=== PATIENT | male | born 1945 | race Caucasian/White ===

== ENCOUNTER → 2017-08-16 06:51 | Outpatient (CLI) | payer MEDICARE, SELFPAY ==
--- NOTE | 2017-08-16 16:17 | STRESSREP ---
Stress Test Report Pharmacologic myocardial perfusion stress test. 71-year-old man with a history of chest pain. Stress EKG: Resting EKG demonstrates normal sinus rhythm with a rate of 67 bpm right bundle branch block is noted. 0.4 mg of regadenoson was infused per usual protocol continuous EKG monitoring was performed. The maximum heart rate attained was 100 bpm which was 67% maximum predicted heart rate the maximum workload attained was 1 metabolic equivalent. At rest there were no ST or T-wave changes noted suggest abnormal flow reserve at peak infusion no ST or T-wave changes were noted suggest abnormal flow reserve resting blood pressure is 146 100 final blood pressure 150/98. Myocardial perfusion protocol. 14.0 mCi of technetium 99m sestamibi was injected at rest. 0.4 mg of regadenoson was infused per usual protocol. Peak infusion 44.6 mCi of technetium 99m sestamibi was injected stress images were obtained stress and rest images were reconstructed and compared in the short axis vertical long and horizontal long axis. Gated images were also obtained. Perfusion SPECT analysis: Review of the stress images demonstrate normal uptake of tracer noted in all areas of the myocardium. The resting images similarly demonstrate normal uptake of tracer noted in all areas of the myocardium. No areas of reversibility are noted suggest ischemia. No previous infarct is noted. Gated SPECT analysis: The gated ejection fraction is 69%. Conclusion: Normal pharmacologic myocardial perfusion stress test. Preserved ejection fraction.
== END ==
PROVIDERS: Family Provider Family Medicine; PCP Family Medicine; Visit Provider Family Medicine
DX: R06.02 Shortness of breath (principal)
CPT/HCPCS: 78452; 93017; A9500; A4216; J2785

== ENCOUNTER 2018-01-30 15:16 | Observation (INO) | payer MEDICARE, SELFPAY ==
[2018-01-30] VITALS (9 sets, daily range): BP systolic 114–182; BP diastolic 69–109; PULSE 65–87; RESP 14–18; TEMP 36.4–37.1; O2SAT 89–98; BMI 42.4
[2018-01-30 16:54] LABS: Absolute Lymphocyte Count 1.36 X10^3/ul (0.83-4.51); Absolute Neutrophil Count 6.9 X10^3/uL (2.0-7.7); Basophil# 0.03 X10^3/uL; Basophil% 0.3 % (0-1); Eosinophils% 4.3 % (0-5); Hematocrit 40.2 % (40-54); Hemoglobin 12.7 g/dl (13.0-16.5); Lymphocyte # 1.36 X10^3/ul (4.0); Lymphocyte % 14.5 % (19-41); Mean Corp Hgb Conc 31.6 g/gl (32-36); Mean Corpuscular Hgb 30.4 pg (27.0-32.0); Mean Corpuscular Volume 96.2 fL (80-94); Mean Platelet Vol. 9.7 fl (6.2-12.0); Monocyte# 0.62 X10^3/uL; Monocyte% 6.6 % (0-10); Neutrophil # 6.94 X10^3/uL (2.7-7.7); Platelet Count 238 K/mm3 (150-450); RBC Distribution Width CV 13.9 % (11.6-14.6); RBC Distribution Width SD 49.3 fl (35.1-43.9); Red Blood Count 4.18 M/mm3 (4.6-6.2); White Blood Count 9.4 K/mm3 (4.4-11.0)
[2018-01-30 17:05] LABS: Anion Gap 9 (5-15); BUN 14 mg/dL (7-18); BUN/Creat Ratio 13.5 RATIO (10-20); Calcium,Total 8.4 mg/dL (8.5-10.1); Chloride 106 mmol/L (98-107); Creatinine, Serum 1.04 mg/dL (0.70-1.30); EST Glomerular Filtration Rate 75 mL/min (>60); Est Glom Filt Rate - Afr Amer 90 mL/min (>60); Estimated Creatinine Clearance 60.03 ml/min; Glucose 108 mg/dL (74-106); Potassium 4.2 mmol/L (3.5-5.1); Sodium Level 144 mmol/L (136-145)
[2018-01-30 17:07] LABS: POSITIVE COUNT NO; POSITIVE DIFFERENTIAL NO; POSITIVE MORPHOLOGY NO
--- NOTE | 2018-01-30 17:11 | CT_ITS ---
STUDY: CT ABDOMEN AND PELVIS WITHOUT CONTRAST REASON FOR EXAM: Male, 72 years old. Urinary retention, dizziness. Difficulty voiding. RADIATION DOSAGE (If Supplied By Facility): CTDIvol = ( 24.10 ) mGy, DLP = ( 1324.53 ) mGycm TECHNIQUE: Transaxial images were obtained from the dome of the diaphragm to the symphysis pubis without oral contrast, and without intravenous contrast. Sagittal and coronal images were reconstructed. Individualized dose optimization techniques were used for this CT. COMPARISON: None. FINDINGS: There is a 6 x 2 mm nodular density associated with the minor fissure. The visualized portions of the heart are within normal limits. Normal liver. Multiple small dependent gallstones are seen. No evidence of extrahepatic battery duct dilation. Normal spleen. Normal pancreas. Normal bilateral adrenal glands. There is mild bilateral hydronephrosis. Ureters are normal in course and caliber. No renal or ureteral stones are seen. There is no bowel obstruction or inflammatory change. Diverticulosis is noted, with no evidence of acute diverticulitis. The aorta is normal in caliber with mild atherosclerotic calcification. Infrarenal IVC filter is present. Normal urinary bladder. Normal abdominal wall. Mild degenerative spine changes are present. CT/Abdomen/Pelvis without Cont IMPRESSION: 1. Mild bilateral hydronephrosis. No evidence of obstructing mass or stone. 2. Cholelithiasis. No evidence of acute cholecystitis. 3. Nodular density in the right lung, likely fibrotic. Electronically Signed: Janny Hand MD at 18:12 EDT Tel , Service support ,
--- NOTE | 2018-01-30 17:46 | US_ITS ---
STUDY: VENOUS DOPPLER ULTRASOUND - LEFT LOWER EXTREMITY REASON FOR EXAM: Male, 72 years old. Left leg swelling. TECHNIQUE: Ultrasound evaluation of the deep vein system to include sutherland-scale imaging and compression was performed. Sutherland-scale imaging and Doppler sonographic evaluation, including duplex spectral analysis and qualitative color flow sonography, was performed. COMPARISON: None. FINDINGS: Common Femoral Vein: Normal compression, spontaneity and augmentation. Normal color Doppler. Femoral Proximal: Normal compression. Femoral Middle: Normal compression, spontaneity and augmentation. Normal color Doppler. Femoral Distal: Normal compression. Popliteal Vein: Normal compression, spontaneity and augmentation. Normal color Doppler. Visualized scans are patent. US/Venous Duplex Imag/Limited/Uni IMPRESSION: Normal venous Doppler ultrasound of the left lower extremity. Electronically Signed: Janny Hand MD at 19:08 EDT Tel , Service support ,
[2018-01-30] MEDS: Morphine 4 MG/ML Syringe IV ×3 (17:52→19:56)
[2018-01-30] MEDS: Ondansetron 4 MG/2 ML Vial IV ×2 (17:52→19:56)
--- NOTE | 2018-01-30 19:53 | CT_ITS ---
STUDY: CT ABDOMEN AND PELVIS WITHOUT CONTRAST REASON FOR EXAM: Male, 72 years old. Suprapubic catheter placement. Urinary retention. RADIATION DOSAGE (If Supplied By Facility): CTDIvol = ( 23.23 ) mGy, DLP = ( 1398.87 ) mGycm TECHNIQUE: Transaxial images were obtained from the dome of the diaphragm to the symphysis pubis without oral contrast, and without intravenous contrast. Sagittal and coronal images were reconstructed. Individualized dose optimization techniques were used for this CT. COMPARISON: None. FINDINGS: There is mild bibasilar atelectasis. The visualized portions of the heart are within normal limits. The liver, spleen, pancreas, and adrenal glands are unremarkable. Small dependent stones are seen in the bladder. The aorta is normal in caliber. Infrarenal IVC filter is noted. The kidneys are unremarkable. No renal stones or obstructive uropathy. The bladder has been decompressed compared to the prior study. There is moderate fluid surrounding the bladder, new compared to the prior study, consistent with catheter placement and urine leakage. There is mild free fluid about the liver, new compared to the prior study. There are several foci of extraluminal gas, new compared to the prior study, consistent with recent procedure. There is no organized collection. There is no bowel obstruction or inflammatory change. Mild inguinal adenopathy is noted. Normal abdominal wall. Degenerative changes of the spine and hips are noted. CT/Abdomen/Pelvis without Cont IMPRESSION: 1. Status post bladder decompression with moderate free fluid about the bladder, consistent with urine leak during or status post procedure. 2. Trace free air consistent with recent procedure. 3. Cholelithiasis. Electronically Signed: Janny Hand MD at 20:44 EDT Tel , Service support ,
--- NOTE | 2018-01-30 20:34 | ED.VISSUMM ---
- ER Visit Summary Date of Service: 01/30/18 Chief Complaint: Urinary retention History of Present Illness: The patient is a [address] King. He reports that he had right rotator cuff repair [address] Diaz in [facility]. States that since that time feels like he is dribbling and trickling urine. He does not feel he is emptying his bladder. Reports that he feels lightheaded. He has not passed out. He also complains of left leg swelling over the past 3 days. He denies any chest pain or shortness of breath. Physical Examination: Vitals: Stable. Afebrile. General: Well-nourished and well-developed. Head: Normocephalic atraumatic. Neck: Supple, no lymphadenopathy. No JVD. Nontender. Cardiovascular: Regular rate and rhythm. No murmurs. Respiratory: No respiratory distress. Clear to auscultation bilaterally. Abdominal: Soft, mild suprapubic tenderness with a distended bladder, nondistended, normal bowel sounds. No guarding, rebound, or peritoneal signs. : Penis is recessed back into his suprapubic tissue. Back: Nontender. Extremities: Right shoulder is in a sling. 2+ edema left lower extremity. Skin: Normal color, no rash. Neurologic: Alert and oriented ?3. Cranial nerves II through XII are intact. Normal strength and sensation. Psych: Normal affect. Test Results: CT flank shows mild bilateral hydronephrosis. Left lower extreme a Doppler shows no DVT. CBC is more for hemoglobin 12.7, 7 neutrophils 74, lymphocytes 15. Chem-7 is more for glucose 108 and calcium of 8.4. Emergency Department Course and Treatment: Patient had a bladder scan here that only showed 200 cc of urine. I do not feel that this is accurate. He has CT flank that does show a distended bladder. He was discussed with Dr. Barron who has seen him in the emergency department and is taking him to the operating room at this time. She did attempt to place a Ochoa catheter and suprapubic catheter in the emergency department without success. Treatment Plan: Patient will be admitted to Dr. Barron for further evaluation and treatment. Disposition: Admitted in stable condition. Impression: 1. Urinary retention. 2. 3 days status post right rotator cuff repair. This note was generated with Dragon dictation software. It may contain incorrect words, spelling, and punctuation that were not noted in review of the chart prior to signing ED Disposition - Plan for ED Patient: Chief Complaint: Complaint Referrals: Sundeep King MD [Primary Care Provider] -
[2018-01-30] MEDS: Lidocaine Jelly 2% 20 ML Syringe (URO-JET) 20 APPLIC TOPICAL (21:14)
--- NOTE | 2018-01-30 21:44 | ED.RN ---
Addendum entered by Sheldon Johnson 01/30/18 22:09: PT DURING THE PROCEDURE IS COMPLAINING OF INTOLERABLE PAIN IN HIS ABDOMEN, DR AGUILAR GAVE VERBAL ORDERS FOR MORPHINE AND ZOFRAN. PT WAS MEDICATED FOR PAIN, PT'S HEART RATE THEN BEGAN TO GO DOWN INTO THE 30'S, DR AGUILAR WAS MADE AWARE AND CALLED FOR ATROPINE TO BE BEDSIDE. ATROPINE WAS OPENED BUT PT'S HEART RATE RETURNED INTO THE MID 50'S. THE SUPRAPUBIC WAS UNSUCCESSFUL AND WAS DECIDED TO TAKE PT DOWN TO SURGERY. Original Note: Addendum entered by Sheldon Johnson 01/30/18 22:09: Original Note: DR BOSS WAS IN THE ED TO ATTEMPT SUPRAPUBIC CATHETER. DR BOSS ATTEMPTED SEVERAL TIMES WITH SUPRAPUBIC KIT AND WAS NOT SUCCESSFULLY ABLE TO HAVE SUSPECTED AMOUNT OF URINE DRAIN FROM THE CATHETER. DR BOSS THEN REQUESTED THE BLADDER IRRIGATION KIT, WHICH WAS PROVIDED, SHE ATTEMPTED TO IRRIGATE WITH APPROX 30ML OF STERILE NORMAL SALINE. A SMALL AMOUNT OF BLOOD TINGED CLEAR LIQUID DRAINED FROM THE BLADDER. SHE NEXT REQUESTED DR AGUILAR AND THE ULTRASOUND MACHINE ALONG WITH A SPINAL NEEDLE TO ATTEMPT TO ASPIRATE THE BLADDER. SUPPLIES AND DR AGUILAR WERE BROUGHT BACK TO THE PATIENT ROOM. DR BOSS AND DR AGUILAR WERE NOT ABLE TO DETERMINE WHETHER OR NOT THE CATHETER WAS IN THE BLADDER. DR BOSS ATTEMPTED SEVERAL TIME TO ASPIRATE THE BLADDER WAS GETTING SOME FLUID RETURN WITH THE SPINAL NEEDLE AND THEN ATTEMPTED TO REINSERT THE SUPRAPUBIC AGAIN. ONLY A SMALL AMOUNT OF FLUID DRAINED.
[2018-01-30] MEDS: Bacitracin 500 UNITS/GM PACKET (22:15)
--- NOTE | 2018-01-30 22:30 | PCM.IMDPSTOP ---
Immediate Post-Op Note Date of Procedure: 01/30/18 Primary Surgeon/Physician: Nicole Barron MD air chief marshal: Nicole Barron Pre-Operative Diagnosis: urinary retention, urethral stricture. Post-Operative Diagnosis: same Surgery/Procedure Performed:: urethral dilation, terrell catheter insertion, difficult Description of Surgical Findings:: Penis located in scrotal folds due to reconstruction. slit made in scrotal fold, meatus identified and urethra dilated with sounds to 18 Fr. 16 Fr terrell passed without difficulty. 250cc clear yellow urine drained. Estimated Blood Loss: 5cc Specimen's removed: none Type of Anesthesia:: MAC - and 1% lidocaine local - Admit VTE Documentation VTE Present on Admission: Yes VTE Mechan Device Prophylaxis: SCD's VTE Pharm Prophylaxis ordered?: Yes
--- NOTE | 2018-01-30 22:34 | OP.PN_ITS ---
Immediate Post-Op Note Date of Procedure: 01/30/18 Primary Surgeon/Physician: Nicole Barron MD pediatric clinical dietician: Nicole Barron Pre-Operative Diagnosis: urinary retention, urethral stricture. Post-Operative Diagnosis: same Surgery/Procedure Performed:: urethral dilation, terrell catheter insertion, difficult Description of Surgical Findings:: Penis located in scrotal folds due to reconstruction. slit made in scrotal fold , meatus identified and urethra dilated with sounds to 18 Fr. 16 Fr terrell passed without difficulty. 250cc clear yellow urine drained. Estimated Blood Loss: 5cc Specimen's removed: none Type of Anesthesia:: MAC - and 1% lidocaine local - Admit VTE Documentation VTE Present on Admission: Yes VTE Mechan Device Prophylaxis: SCD's VTE Pharm Prophylaxis ordered?: Yes
[2018-01-30] MEDS: Dextrose 5%-Lactated Ringers 1,000 ML 100 ML IV (22:35)
--- NOTE | 2018-01-30 22:51 | OP.PCM_ITS ---
Problem List (1) Urinary retention Status: Acute (2) Urethral stricture Status: Acute Report of Operation Date of Procedure: 01/30/18 Pre-Operative Diagnosis: urinary retention, urethral stricture. Post-Operative Diagnosis: same Surgery/Procedure Performed:: urethral dilation, terrell catheter insertion, difficult Description of Surgical Findings:: Penis located in scrotal folds due to reconstruction. slit made in scrotal fold , meatus identified and urethra dilated with sounds to 18 Fr. 16 Fr terrell passed without difficulty. 250cc clear yellow urine drained. application technical designer: Nicole Barron Type of Anesthesia:: MAC - and 1% lidocaine local Special Medications: ancef, lidocaine local Specimen's removed: none Estimated Blood Loss (mL): 5cc Description of Procedure: The patient is a 72-year-old male who has a history of bariatric procedure followed by significant weight loss. This weight loss yielded a crane ectomy. 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 Over the course of 3 years he has been scarring down the scrotal reconstructive surgery and has now been just dripping urine. Of note, he did not follow up appropriately following his reconstructive procedure. He wears depends at home and does not void normally. He reports that he stands up and pushes on his abdomen in order to get the urine to come out. He denies hematuria. He had a rotator cuff procedure 3 days ago and has had increased difficulty in voiding since that time. Due to inability to urinate and continuous urinary incontinence, he presented to the emergency room today. An attempt was made in the emergency room to place a Terrell catheter this was unsuccessful. The patient had an second area in the scrotum that was leaking urine which was cephalad to the area of the scrotal reconstruction. At this time he continued to leak urine and a CT scan was obtained. The CT scan revealed a large distended urinary bladder without hydronephrosis. An attempt was then made at bedside suprapubic tube insertion. Approximately 200 cc of urine was obtained. The drainage then stopped abruptly. The decision was made to take the patient back for rescanning of his abdomen. This scan showed the Terrell catheter to be in an anterior position to a significantly decreased distended urinary bladder. The bladder was surrounded with fluid, likely to be urine and blood. At this time the risks and alternatives were discussed with the patient and I called his on the phone. We decided to take the patient back to surgery for insertion of a urethral Terrell catheter. The patient was taken to the operating room and placed on the operating room table. Anesthesia monitored the head neck area IV access and vital signs throughout the case. Once anesthesia was a probably administered the patient was prepped and draped in usual sterile fashion. At first inspection was made on the area thought to be the urethral scar after reconstruction. This area was inspected and felt to be more likely a fistulous leaking area. Attention was then turned down towards the area of the scrotum where there were multiple folds of skin that were abnormal in shape. Upon further inspection, an area of hair was growing into an area determined to be the opening most likely for the penis. This area was dilated first with an 8 Australian sound, followed by a 10 Australian and so forth until it was dilated enough to see the tip of the glans. Once it was determined where the area of the scrotal skin was not the penis, this area was slipped for further evaluation first with hemostatic control using hemostats followed by cutting the tissue with metastases. This was done dorsally. At this time the urethral meatus was visualized and the area was recleansed with Betadine. The meatus was dilated starting with the [address] way up to an 18 Australian. This passed easily into the bladder and a 16 Australian Terrell catheter was placed using a catheter guide into the urinary bladder and the bladder was drained. 250 cc of clear yellow urine was obtained. The balloon was inflated with 10 cc. 2 interrupted sutures were placed in the area in question for a fistula and a wick was left in the middle. 2 mattress sutures were placed in the area of the suprapubic tube insertion site. Bacitracin was applied to the skin at the penile reconstructive site that was opened. Sterile gauze was placed both over the wick as well as the penis. At this time the patient was awakened and taken to the recovery room in good condition. There were no complications during this procedure. - Complications none - Admit VTE Documentation VTE Present on Admission: Yes VTE Mechan Device Prophylaxis: SCD's VTE Pharm Prophylaxis ordered?: Yes
--- NOTE | 2018-01-30 22:52 | PCM.OPRPT ---
Problem List (1) Urinary retention Status: Acute (2) Urethral stricture Status: Acute Report of Operation Date of Procedure: 01/30/18 Pre-Operative Diagnosis: urinary retention, urethral stricture. Post-Operative Diagnosis: same Surgery/Procedure Performed:: suprapubic tube insertion at bedside. Description of Surgical Findings:: After a failed attempt at placement of urethral Ochoa catheter the decision was made to insert a suprapubic tube at bedside. Risks were discussed with the patient including successful placement, bleeding, infection and injury. He agreed to proceed. vendor management specialist: Nicole Barron Type of Anesthesia:: Local Specimen's removed: none Estimated Blood Loss (mL): 5cc Description of Procedure: The patient's abdomen was palpated and the distended bladder was palpable. Approximately 2 fingerbreadths above the pubic bone a wheal of local lidocaine was injected. At this time a 11 blade knife was used to make a stab incision in vertical fashion at the area of the suprapubic tube insertion. Using a spinal needle urine was obtained. The suprapubic tube kit trocar with the Ochoa catheter and cath guide inside was then inserted through the incision into the abdomen and approximately 100 cc of pink urine drained from the Ochoa. The balloon was then inflated with 10 cc in the trocar and spinal needle were removed. At this time the Ochoa began to slough lowly drip urine at which point a steady stream was expected. Patient continued to complain of pain in the abdomen specifically at the site of the suprapubic catheter. At this time it was noticed that the patient had voided a significant amount of urine into the checks and bedding. The decision was made to take the patient back to CAT scan for re-imaging. Upon reimaging it was determined that the Ochoa balloon was in an anterior position to the urinary bladder. The suprapubic tube was removed. - Complications placement of suprapubic catheter anterior to the bladder. - Admit VTE Documentation VTE Present on Admission: No
[2018-01-31 00:13] VITALS: BMI 42.4
[2018-01-31 00:17] VITALS: BP 143/92; PULSE 76; RESP 16; TEMP 37.2; O2SAT 96
[2018-01-31] MEDS: HYDROcodone Bitartrate/Apap 5/325 Tablet PO ×2 (01:15→14:19)
[2018-01-31] MEDS: Cephalexin 500 MG Capsule PO ×3 (01:15→11:49)
[2018-01-31] MEDS: Enoxaparin 40 MG/0.4 ML Syringe SC ×2 (01:15→06:46)
[2018-01-31] MEDS: Dextrose 5%-Lactated Ringers 1,000 ML 100 ML IV (01:43)
[2018-01-31 01:58] LABS: Bacteria 0 SEEN /hpf (None Seen); Mucous, Urine 0 SEEN /hpf (<or=2+); Squamous Epithelial Cells - UA 0 SEEN /hpf (0-5); White Blood Cells 0 SEEN /hpf (0-5)
[2018-01-31 02:03] LABS: Color, Urine Yellow (Yellow); Glucose, Dipstick Normal (Normal); Ketone-Dipstick Negative (Negative); Leukocyte Esterase-Dipstick Negative /ul (Negative); Nitrite-Dipstick Negative (Negative); Occult Blood-Urine 10 /ul (Negative); Protein-Dipstick Negative (Negative); Specific Gravity, Urine 1.015 (1.002-1.030); Urine Bilirubin Dipstick Negative (Negative); Urine Clarity Clear (Clear); Urine Urobilinogen Normal (Normal); Urine pH 6.5 (5.0 - 8.0)
[2018-01-31 02:05] VITALS: BP 142/79; PULSE 76; RESP 16; TEMP 36.1; O2SAT 97; BMI 42.4
[2018-01-31 02:09] LABS: Red Blood Cells-Urine 0-5 SEEN /hpf (0-5)
[2018-01-31 05:15] VITALS: BP 132/68; PULSE 81; RESP 16; TEMP 36.9; O2SAT 97
[2018-01-31] MEDS: Lisinopril 40 MG Tablet PO (08:49)
[2018-01-31 08:50] VITALS: BP 138/83; PULSE 76; RESP 18; TEMP 37; O2SAT 93
[2018-01-31] MEDS: Etodolac 200 MG Capsule 400 MG PO (08:50)
[2018-01-31] MEDS: Aspirin 81 MG TAB.CHEW PO (08:50)
[2018-01-31] MEDS: Nystatin Ointment 1 APPLIC TOPICAL (08:51)
--- NOTE | 2018-01-31 09:14 | PN_ITS ---
Physical Exam Subjective: Feeling much better this morning. Sitting up in bed, eating breakfast. Some penile pain, but no abdominal pain or distention. Ready to go home. Objective: Terrell catheter draining clear yellow urine. Abdominal SPT site closed, not draining. Wick in the SP area removed. Will continue to change dressing as needed. penile area edematous, but no drainage or bleeding. nystatin cream being applied BID to inguinal areas. - Physical Exam Vital Signs Temp 98.5 F 01/31/18 05:15 Pulse 81 01/31/18 05:15 Resp 16 01/31/18 05:15 BP 132/68 H 01/31/18 05:15 Pulse Ox 97 01/31/18 05:15 Intake & Output 01/29/18 01/30/18 01/31/18 23:59 23:59 23:59 Intake Total 1000 / 1000 1177 / 1177 Output Total 150 / 150 709 / 709 Balance 850 / 850 468 / 468 Weight: 122.92 kg Intake: Oral 500 / 500 IV fluid/meds 1000 / 1000 677 / 677 IV #2 1000 / 1000 Output: Urine 150 / 150 709 / 709 General: Alert, Oriented x3, Cooperative, No apparent distress HEENT: Atraumatic, Normocephalic Oral: Moist Mucosa Neck: Trachea Midline Lungs: Normal air movement Abdomen: Soft, Non Tender, Non-Distended Rectal: Exam deferred Skin: Rash Present - inguinal consistent with yeast. Neurological: Cranial nerves II-XII grossly intact, Neuro grossly intact Psych/Mental Status: Normal Affect Laboratory Tests Past 24 Hrs 01/31/18 01:20 Urine Color Yellow Urine Clarity Clear Urine pH 6.5 Ur Specific [place] 1.015 Urine Protein Negative Urine Glucose (UA) Normal Urine Ketones Negative Urine Occult Blood 10 H Urine Nitrite Negative Urine Bilirubin Negative Urine Urobilinogen Normal Ur Leukocyte Esterase Negative Urine RBC 0-5 SEEN Urine WBC 0 SEEN Ur Squamous Epith Cells 0 SEEN Urine Bacteria 0 SEEN Urine Mucus 0 SEEN Medical Necessity - Tobacco Use Smoking Status: Former smoker Assessment/Plan All Active Problems Urinary retention (Acute) Urethral stricture (Acute) Cellulitis of buttock, left (Acute) Cellulitis of elbow (Resolved) Home today on keflex, nystatin with terrell catheter to straight drain. Will continue dry dressings as needed. Will follow up with in the office in 1 week.
--- NOTE | 2018-01-31 09:17 | PCM.DC.URO ---
Discharge Diet: No Restrictions, - - as appropriate s/p bariatric procedure. Discharge Activity: Return to Normal Activity - as instructed per orthopedics regarding rotator cuff, May Shower, - - no tub bathing Call your doctor if your incision/area has: Continuous Slow Oozing, Sudden Increased Bleeding, Increased Pain/ Swelling, Increased Redness, Foul Smelling Discharge, Swelling at the incision site Call your doctor if you observe: Fever of 101 or Higher, Inability to urinate, Inability to have a bowel movement, Chest pain, Calf discomfort, Uncontrolled pain Cleanse incision/area with: Keep Dressing Clean & Dry Catheter: Ochoa to leg bag, - - ok to use large bag at night Allergies/Adverse Reactions: Allergies oxycodone Adverse Reaction (Verified 01/30/18 16:28) Nausea Medications to take at Discharge Lisinopril [Zestril] 40 mg PO DAILY 01/08/15 Aspirin [Aspirin, Baby] 81 mg PO DAILY@0800 04/24/15 Oxycodone HCl/Acetaminophen [Percocet 5-325] 1 - 2 tablet PO Q4H PRN PRN #20 tablet 05/18/16 Etodolac 400 mg PO BID 01/30/18 Multivitamin [Multiple Vitamins] 1 each PO DAILY 01/30/18 Aspirin [Aspirin, Baby] 81 mg PO DAILY@0800 tab.chew 01/31/18 Cephalexin [Keflex] 500 mg PO Q6 capsule 01/31/18 Cephalexin [Keflex] 500 mg PO Q6 #40 cap 01/31/18 Enoxaparin [Lovenox] 40 mg SC DAILY@0600 syringe 01/31/18 Ensure Enlive 120 ml PO 4X/DAY liquid 01/31/18 Etodolac [Lodine] 400 mg PO BIDCM capsule 01/31/18 Hydrocodone Bitart/Apap 5-325 [[place] 5/325] 2 tab PO Q6H PRN PRN 7 Days #30 tab 01/31/18 The following prescriptions were given: Hydrocodone Bitart/Apap 5-325 [[place] 5/325] 2 tab PO Q6H PRN PRN 7 Days #30 tab PRN Reason: Severe Pain (-03/01) Cephalexin [Keflex] 500 mg PO Q6 #40 cap Primary Care Physician: Sundeep King MD [Primary Care Provider] - Test Results: Test results from this visit will be discussed in further detail at your follow-up appointment, if applicable. Please Follow Up With: When: in 1 week
--- NOTE | 2018-01-31 09:20 | DCINST_ITS ---
Discharge Diet: No Restrictions, - - as appropriate s/p bariatric procedure. Discharge Activity: Return to Normal Activity - as instructed per orthopedics regarding rotator cuff, May Shower, - - no tub bathing Call your doctor if your incision/area has: Continuous Slow Oozing, Sudden Increased Bleeding, Increased Pain/ Swelling, Increased Redness, Foul Smelling Discharge, Swelling at the incision site Call your doctor if you observe: Fever of 101 or Higher, Inability to urinate, Inability to have a bowel movement, Chest pain, Calf discomfort, Uncontrolled pain Cleanse incision/area with: Keep Dressing Clean & Dry Catheter: Ochoa to leg bag, - - ok to use large bag at night Allergies/Adverse Reactions: Allergies oxycodone Adverse Reaction (Verified 01/30/18 16:28) Nausea Medications to take at Discharge Lisinopril [Zestril] 40 mg PO DAILY 01/08/15 Aspirin [Aspirin, Baby] 81 mg PO DAILY@0800 04/24/15 Oxycodone HCl/Acetaminophen [Percocet 5-325] 1 - 2 tablet PO Q4H PRN PRN #20 tablet 05/18/16 Etodolac 400 mg PO BID 01/30/18 Multivitamin [Multiple Vitamins] 1 each PO DAILY 01/30/18 Aspirin [Aspirin, Baby] 81 mg PO DAILY@0800 tab.chew 01/31/18 Cephalexin [Keflex] 500 mg PO Q6 capsule 01/31/18 Cephalexin [Keflex] 500 mg PO Q6 #40 cap 01/31/18 Enoxaparin [Lovenox] 40 mg SC DAILY@0600 syringe 01/31/18 Ensure Enlive 120 ml PO 4X/DAY liquid 01/31/18 Etodolac [Lodine] 400 mg PO BIDCM capsule 01/31/18 Hydrocodone Bitart/Apap 5-325 [Strand[place] 5/325] 2 tab PO Q6H PRN PRN 7 Days #30 tab 01/31/18 The following prescriptions were given: Hydrocodone Bitart/Apap 5-325 [Strandquist 5/325] 2 tab PO Q6H PRN PRN 7 Days #30 tab PRN Reason: Severe Pain (-03/01) Cephalexin [Keflex] 500 mg PO Q6 #40 cap Primary Care Physician: Sundeep King MD [Primary Care Provider] - Test Results: Test results from this visit will be discussed in further detail at your follow- up appointment, if applicable. Please Follow Up With: When: in 1 week
[2018-01-31 12:05] VITALS: O2SAT 97
--- NOTE | 2018-01-31 13:07 | NURSING ---
1230-patient resting at side of bed after being up to restroom with assist x1; pt had been instructed to pull cord by toilet to get assistance back to bed. pt now found at side of bed stating he almost fell in restroom and then stating he fell to his knees, but was able to get back up. when asked why he didn't wait for assistance, pt states he didn't think anyone was coming. MD notified. pt denies pain needs. denies hitting head.
--- NOTE | 2018-01-31 13:54 | NURSING ---
called in for update on patient. reviewed discharge instructions with over phone. denies questions.
[2018-01-31 14:22] VITALS: BP 134/81; PULSE 76; RESP 18; TEMP 37.1; O2SAT 96
== END 2018-01-31 15:30 | disposition home or self-care (01) ==
LOC: ED 16:52 → SDC 20:38 → AC 20:43 → SDC 21:11 → MS2 21:34
PROVIDERS: Admitting Provider Urology; Emergency Provider Emergency Medicine; Family Provider Family Medicine; PCP Family Medicine; Visit Provider Urology
PROC: 0TJB8ZZ Inspection of Bladder, Via Natural or Artificial Opening Endoscopic (ICD-10-PCS; CPT 52000; principal; 2018-01-30 21:30)
DX: R33.9 Retention of urine, unspecified (principal); N35.9 Urethral stricture, unspecified; R32 Unspecified urinary incontinence; N48.83 Acquired buried penis; Z86.711 Personal history of pulmonary embolism; Z98.84 Bariatric surgery status; Z79.899 Other long term (current) drug therapy; Z79.82 Long term (current) use of aspirin; R42 Dizziness and giddiness; M79.89 Other specified soft tissue disorders
CPT/HCPCS: 00910; 51040; 53600; 74176; 80048; 81001; 85025; 87086; 93971; 96361; 96372; 96374; 96375; 96376; 99218; 99283; J7030; A4216; G0378; J2405

== ENCOUNTER 2018-02-15 17:31 | Emergency (ER) | payer MEDICARE, SELFPAY ==
[2018-02-15 17:31] VITALS: BP 164/92; PULSE 80; RESP 18; TEMP 36.6; O2SAT 97; BMI 42.0
--- NOTE | 2018-02-15 18:01 | CT_ITS ---
STUDY: CT ABDOMEN AND PELVIS WITH CONTRAST REASON FOR EXAM: Male, 72 years old. Blood and fully catheter today RADIATION DOSAGE (If Supplied By Facility): CTDIvol = ( 22.45 ) mGy, DLP = ( 2693.74 ) mGycm TECHNIQUE: Transaxial images were obtained from the dome of the diaphragm to the symphysis pubis without oral contrast. 100ML ml of Isovue 300 contrast was administered. Sagittal and coronal images were reconstructed. Individualized dose optimization techniques were used for this CT. COMPARISON: Previous study of 01/30/2018 FINDINGS: The visualized lung bases are unremarkable. The visualized portions of the heart are within normal limits. Normal liver. Several tiny calcified gallstones are seen in the gallbladder. Normal spleen. Normal pancreas. Normal bilateral adrenal glands. There is a 1.1 cm low-attenuation focus of the right kidney indeterminate for solid versus cystic structure. Normal left kidney. Status post gastric surgical changes are noted. Normal small intestine. There is colonic diverticulosis with no evidence of associated diverticulitis. The appendix is visualized and appears normal. There are calcified plaques of the abdominal aorta and common iliac arteries. An IVC filter is seen at the L2-3 level. Normal retroperitoneum. A Ochoa catheter is present within a decompressed urinary bladder. The prostate, subtle vesicles, and seminal vesicle angles appear within normal limits. There are bilateral fat-containing inguinal hernias. Normal abdominal wall. There are diffuse degenerative changes of the visualized thoracolumbar spine and SI joints. CT/Abdomen/Pelvis W IV Cont ONLY IMPRESSION: 1. Cholelithiasis. 2. 1.1 cm low-attenuation focus of the right kidney indeterminate for solid versus cystic structure. Ultrasound correlation is recommended. 3. Status post gastric surgical changes. 4. Colonic diverticulosis with no evidence of associated diverticulitis. 5. There is an IVC filter at the L2-3 level. 6. A Ochoa catheter is present within a decompressed urinary bladder. There is no evidence of perivesicular fluid. 7. Bilateral fat-containing inguinal hernias. 8. There is no evidence of free intra-abdominal or intrapelvic air, fluid, or inflammatory process. Electronically Signed: Florentino Sanchez MD at 20:12 EDT , Service support ,
--- NOTE | 2018-02-15 18:06 | ED.DCSUM_ITS ---
- ER Visit Summary Date of Service: 02/15/18 Chief Complaint: Hematuria in Ochoa catheter History of Present Illness: The patient is a 72 M who presents for 1 week of hematuria. Patient has a Ochoa catheter in place and noted 1 week ago that his urine began running red. It is been intermittent, but he has had continued hematuria for the last few days. He is also noted black flecks in it. Patient had complications from right shoulder surgery earlier in the month, resulting in urinary retention. Because of obesity, they attempted to place a suprapubic catheter unsuccessfully, and then he required surgical insertion of a Ochoa catheter into his penis. He is supposed to have it taken out on February 21. Patient is also complaining of associated pain and swelling at the site of the suprapubic catheter insertion. He denies fever, nausea or vomiting, or back pain. He has history of gastric bypass. Dr. Linton is his urologist. Physical Examination: Vital signs: afebrile, hemodynamically stable, no hypoxia on room air General: well nourished, well developed, BMI of 42, in no distress Skin: warm, dry, no rash, no pallor HEENT: normocephalic and atraumatic; PERRL, EOMI, moist mucous membranes Cardiovascular: regular rate and rhythm without murmurs, no peripheral edema, 2+ pulses all distal extremities Respiratory: No increased work of breathing, lungs are clear to auscultation bilaterally, no rales, rhonchi or wheezing Abdominal: Abdomen is soft, obese, tenderness in the lower abdomen and along the midline surgical site from the suprapubic catheter placement, absorbable sutures are still in place, 5 cm area of induration and tenderness, no exudate or fluctuance noted. No suprapubic tenderness or fullness, normoactive bowel sounds, no guarding or rebound, no masses : Fully catheter in place with no leakage or bleeding around the insertion site, penis is not visualized, scrotum appears normal. No swelling or erythema. Ochoa catheter bag is full of rhoda hematuria with small clots. MSK: Moves all extremities, no deformities, normal strength Neuro: Awake and alert, oriented ?4. No facial droop, sensation and motor function intact and symmetric Test Results: Abnormal Lab Results 02/15/18 02/15/18 02/15/18 17:52 18:40 18:40 WBC 8.2 RBC 4.08 L Hgb 12.7 L Hct 39.3 L MCV 96.3 H MCH 31.1 MCHC 32.3 RDW 13.1 RDW Differential 45.0 H Plt Count 255 MPV 10.3 Immature Gran % (Auto) 0.200 Neut % (Auto) 64.9 Lymph % (Auto) 20.2 [place] % (Auto) 6.5 Eos % (Auto) 7.7 H Baso % (Auto) 0.5 Absolute Neuts (auto) 5.3 Absolute Lymphs (auto) 1.66 Total Counted Not Reportable Sodium 141 Potassium 4.7 Chloride 108 H Carbon Dioxide 27.0 Anion Gap 6 BUN 15 Creatinine 1.06 Estim Creat Clear Calc 58.89 Est GFR (MDRD) Af Amer 88 Est GFR (MDRD) Non-Af 73 BUN/Creatinine Ratio 14.2 Glucose 104 Lactic Acid Calcium 8.5 Total Bilirubin 0.50 AST 23 ALT 28 Alkaline Phosphatase 118 H Total Protein 6.9 Albumin 3.2 Globulin 3.7 Albumin/Globulin Ratio 0.9 Urine Color Courtney Urine Clarity Cloudy Urine pH 7.0 Ur Specific [place] 1.010 Urine Protein 100 H Urine Glucose (UA) Normal Urine Ketones Negative Urine Occult Blood 250 H Urine Nitrite Positive H Urine Bilirubin 1 H Urine Urobilinogen 1 H Ur Leukocyte Esterase 500 H Urine RBC > 100 SEEN Urine WBC 10-25 SEEN Ur Squamous Epith Cells 0 SEEN Urine Bacteria 0 SEEN Urine Mucus 0 SEEN 02/15/18 18:40 WBC RBC Hgb Hct MCV MCH MCHC RDW RDW Differential Plt Count MPV Immature Gran % (Auto) Neut % (Auto) Lymph % (Auto) [place] % (Auto) Eos % (Auto) Baso % (Auto) Absolute Neuts (auto) Absolute Lymphs (auto) Total Counted Sodium Potassium Chloride Carbon Dioxide Anion Gap BUN Creatinine Estim Creat Clear Calc Est GFR (MDRD) Af Amer Est GFR (MDRD) Non-Af BUN/Creatinine Ratio Glucose Lactic Acid 1.1 Calcium Total Bilirubin AST ALT Alkaline Phosphatase Total Protein Albumin Globulin Albumin/Globulin Ratio Urine Color Urine Clarity Urine pH Ur Specific [place] Urine Protein Urine Glucose (UA) Urine Ketones Urine Occult Blood Urine Nitrite Urine Bilirubin Urine Urobilinogen Ur Leukocyte Esterase Urine RBC Urine WBC Ur Squamous Epith Cells Urine Bacteria Urine Mucus Clinical Impression(s) from Imaging Studies Abdomen/Pelvis CT 02/15/18 18:01 IMPRESSION: 1. Cholelithiasis. 2. 1.1 cm low-attenuation focus of the right kidney indeterminate for solid versus cystic structure. Ultrasound correlation is recommended. 3. Status post gastric surgical changes. 4. Colonic diverticulosis with no evidence of associated diverticulitis. 5. There is an IVC filter at the L2-3 level. 6. A Ochoa catheter is present within a decompressed urinary bladder. There is no evidence of perivesicular fluid. 7. Bilateral fat-containing inguinal hernias. 8. There is no evidence of free intra-abdominal or intrapelvic air, fluid, or inflammatory process. Electronically Signed: Florentino Sanchez MD at 20:12 EDT , Service support , Medications Given Discontinued Medications Cephalexin (Keflex) 500 mg PO X1 ONE Stop: 02/15/18 21:05 Last Admin: 02/15/18 21:13 Dose: 500 mg Doxycycline Monohydrate (Doxycycline) 100 mg PO X1 ONE Stop: 02/15/18 21:05 Last Admin: 02/15/18 21:13 Dose: 100 mg Sodium Chloride () 1,000 mls @ 1,000 mls/hr IV .Q1H ONE Stop: 02/15/18 19:00 Last Admin: 02/15/18 18:57 Dose: 1,000 mls/hr Morphine Sulfate () 4 mg IV X1 ONE Stop: 02/15/18 18:02 Last Admin: 02/15/18 18:57 Dose: 4 mg Ondansetron HCl (Zofran) 4 mg IV X1 ONE Stop: 02/15/18 18:02 Last Admin: 02/15/18 18:57 Dose: 4 mg Emergency Department Course and Treatment: Patient was given IV fluids, Zofran and morphine for symptomatically relief. Ochoa catheter will be flushed secondary to the hematuria. Patient does have diffuse lower abdominal tenderness and induration around the site of the suprapubic catheter placement. Thus a CT abdomen and pelvis is being performed to evaluate for any possible complication such as abscess formation. Labs were performed. Patient has no leukocytosis or significant anemia. Lactate is normal. Urine was positive for gross hematuria with no bacteria, and the white count is consistent with hematuria rather than infection. CT the abdomen and pelvis showed a decompressed bladder and no free fluid. There was fat stranding noted in the pannus along the tract of the prior suprapubic catheter. Patient was feeling better after receiving IV medications. Urine was now clear and yellow after being flushed. No further evidence of hematuria. Probable patient requested the sutures be removed from the incision site where the suprapubic catheter placement was attempted. We discussed that there is likely absorbable sutures, but he is finding discomfort from them. The area was cleansed with Betadine and the sutures were removed. 2 of them had already absorbed, and 2 were removed. Each suture site had a small amount of pus expressed from it. Because of the concern for the cellulitis noted on CT scan and also consistent with the area of induration on patient's abdomen, he was started on doxycycline and Keflex for treatment of cellulitis with presence of small amount of pus. Patient was discharged home and will keep his follow-up appointment as planned. He will return to the emergency department if any worsening condition. Treatment Plan: [] Disposition: [] Impression: Cellulitis of the abdomen, suture removal, gross hematuria with Ochoa catheter in place This note was generated with [employer] dictation software. It may contain incorrect words, spelling, and punctuation that were not noted in review of the chart prior to signing ED Disposition - Plan for ED Patient: Disposition: Home or Assisted Living Chief Complaint: Complaint Instructions: ED Infec Skin Cellulitis, ED Hematuria Prescriptions: Cephalexin [Keflex] 500 mg PO Q6 #40 cap RX: Doxycycline Monohydrate 100 mg PO BID #20 cap Referrals: Chris Linton MD [STAFF PHYSICIAN] - Keep Jessica appointment Sundeep King MD [Primary Care Provider] - 3-5 Days if not improving Additional Instructions: Take the antibiotics for the infection on your stomach at your surgical site. If you have any continued blood in your urine that does not clear up within 12 hours, if you begin feeling dizzy or faint, if you have fever, or if you have any worsening of your condition, please return immediately to the emergency department for another evaluation.
[2018-02-15 18:16] LABS: Bacteria 0 SEEN /hpf (None Seen); Mucous, Urine 0 SEEN /hpf (<or=2+); Squamous Epithelial Cells - UA 0 SEEN /hpf (0-5)
[2018-02-15 18:21] LABS: Color, Urine Amber (Yellow); Glucose, Dipstick Normal (Normal); Ketone-Dipstick Negative (Negative); Leukocyte Esterase-Dipstick 500 /ul (Negative); Nitrite-Dipstick Positive (Negative); Occult Blood-Urine 250 /ul (Negative); Protein-Dipstick 100 mg/dl (Negative); Urine Clarity Cloudy (Clear); Urine Urobilinogen 1 mg/dl (Normal)
[2018-02-15 18:24] LABS: Urine Bilirubin Dipstick 1 mg/dL (Negative)
[2018-02-15 18:27] LABS: Red Blood Cells-Urine > 100 SEEN /hpf (0-5); White Blood Cells 10-25 SEEN /hpf (0-5)
[2018-02-15 18:53] LABS: Absolute Lymphocyte Count 1.66 X10^3/ul (0.83-4.51); Absolute Neutrophil Count 5.3 X10^3/uL (2.0-7.7); Basophil# 0.04 X10^3/uL; Basophil% 0.5 % (0-1); Eosinophil# 0.63 X10^3/uL; Eosinophils% 7.7 % (0-5); Hematocrit 39.3 % (40-54); Hemoglobin 12.7 g/dl (13.0-16.5); Lymphocyte # 1.66 X10^3/ul (4.0); Lymphocyte % 20.2 % (19-41); Mean Corp Hgb Conc 32.3 g/gl (32-36); Mean Corpuscular Hgb 31.1 pg (27.0-32.0); Mean Corpuscular Volume 96.3 fL (80-94); Mean Platelet Vol. 10.3 fl (6.2-12.0); Monocyte# 0.53 X10^3/uL; Monocyte% 6.5 % (0-10); Neutrophil # 5.32 X10^3/uL (2.7-7.7); Neutrophil % 64.9 % (47-70); Platelet Count 255 K/mm3 (150-450); RBC Distribution Width CV 13.1 % (11.6-14.6); Red Blood Count 4.08 M/mm3 (4.6-6.2); White Blood Count 8.2 K/mm3 (4.4-11.0)
[2018-02-15] MEDS: 0.9% Normal Saline 1,000 ML 1000 ML IV (18:57)
[2018-02-15] MEDS: Morphine 4 MG/ML Syringe IV (18:57)
[2018-02-15] MEDS: Ondansetron 4 MG/2 ML Vial IV (18:57)
[2018-02-15 19:02] LABS: POSITIVE COUNT NO; POSITIVE DIFFERENTIAL NO; POSITIVE MORPHOLOGY NO
[2018-02-15 19:07] LABS: ALB/GLOB Ratio 0.9 RATIO (0.9-2.4); AST(SGOT) 23 U/L (15-37); Alanine Aminotransfer ALT/SGPT 28 U/L (16-61); Albumin, Serum 3.2 g/dL (3.2-5.0); Alkaline Phosphatase 118 U/L (45-117); Anion Gap 6 (5-15); BUN 15 mg/dL (7-18); BUN/Creat Ratio 14.2 RATIO (10-20); Calcium,Total 8.5 mg/dL (8.5-10.1); Chloride 108 mmol/L (98-107); Creatinine, Serum 1.06 mg/dL (0.70-1.30); EST Glomerular Filtration Rate 73 mL/min (>60); Est Glom Filt Rate - Afr Amer 88 mL/min (>60); Estimated Creatinine Clearance 58.89 ml/min; Globulin 3.7 g/dL (2.2-4.2); Glucose 104 mg/dL (74-106); Potassium 4.7 mmol/L (3.5-5.1); Protein, Total 6.9 g/dL (6.4-8.2); Sodium Level 141 mmol/L (136-145)
[2018-02-15 19:09] LABS: Lactic Acid 1.1 mmol/L (0.4-2.0)
[2018-02-15 20:25] VITALS: RESP 16
--- NOTE | 2018-02-15 21:04 | ED.DEP ---
ED Disposition - Plan for ED Patient: Disposition: Home or Assisted Living Chief Complaint: Complaint Instructions: ED Hematuria, ED Infec Skin Cellulitis Prescriptions: Cephalexin [Keflex] 500 mg PO Q6 #40 cap Doxycycline Monohydrate 100 mg PO BID #20 cap Referrals: Sundeep King MD [Primary Care Provider] - 3-5 Days if not improving Chris Linton MD [STAFF PHYSICIAN] - Keep Jessica appointment Additional Instructions: Take the antibiotics for the infection on your stomach at your surgical site. If you have any continued blood in your urine that does not clear up within 12 hours, if you begin feeling dizzy or faint, if you have fever, or if you have any worsening of your condition, please return immediately to the emergency department for another evaluation.
[2018-02-15] MEDS: Cephalexin 250 MG Capsule 500 MG PO (21:13)
[2018-02-15] MEDS: Doxycycline 100 MG CAPSULE PO (21:13)
== END 2018-02-15 21:18 | disposition home or self-care (01) ==
PROVIDERS: Emergency Provider Emergency Medicine; Family Provider Family Medicine; PCP Family Medicine
DX: L03.311 Cellulitis of abdominal wall (principal); Z48.02 Encounter for removal of sutures; R31.0 Gross hematuria; Z96.0 Presence of urogenital implants; E66.9 Obesity, unspecified; Z68.41 Body mass index [BMI] 40.0-44.9, adult; K80.20 Calculus of gallbladder without cholecystitis without obstruction; K57.30 Diverticulosis of large intestine without perforation or abscess without bleeding; K40.20 Bilateral inguinal hernia, without obstruction or gangrene, not specified as recurrent; Z98.84 Bariatric surgery status
CPT/HCPCS: 74177; 80053; 81001; 83605; 85025; 87077; 87086; 87088; 87186; 96361; 96374; 96375; 99284; J7030; Q9967; A4216; J2405

== ENCOUNTER 2018-04-06 13:00 | Outpatient (RCR) | payer MEDICARE, SELFPAY ==
--- NOTE | 2018-03-22 13:57 | HP.PTEVAL ---
Patient's Visit Information FRANDY STUBBS is a 72 year old M referred to Physical Therapy by Víctor Diaz with a diagnosis of Massive Right RTC and Biceps Tenodesis 01/27/18. Date of Evaluation: 03/22/18 Physical Therapist: Evangelina Bermeo - Visit Plan Frequency: 3x /Week Duration: 3 Weeks Plan: MASSIVE RTC and biceps tenodesis 01/27/18- slow progression through protocol - Subjective Subjective: Patient reports that he had a Massive RIGHT RTC repair by Dr. Diaz on January 27, 2018. His injury was prior to the surgery when he reached down in the garage and felt a pop in the shoulder. He was very painful before surgery. He wore his sling until the end of . He is extremely frustrated that he can't use his arm currently. His pain level is a lot better and he mahendra has pain when he rolls over onto the shoulder at night. He reports 10/10 at the worst and 0/10 at the best. Pain is located only in the shoulder and does not radiate to the neck or down the arm. He describes the pain as sharp and shooting. Sleep is disturbed when he rolls over onto the arm. No HARRIS, blurred vision or dizziness but is frustrated due to having to wear a urine bag since surgery. Plans to have a scope at the end of the month in [place]. PMHx and Meds are scanned into the chart. He is right hand dominate. - Objective Posture:FH, RS- very protective of the right UE- guarded. Gait: no trunk rotation or arm swing. Palpation: tender along upper trap into the bicipital groove. ROM: AROM: flexion: 50 degrees, abd: 90 degrees, IR: back pocket, ER: 30 degrees- all with pain at end range. PROM unable to perform as patient refused to lay supine. Attempted AAROM but the patient reported to much pain- was able to perform pendulums- PROM elbow: WNL pain at end range flexion- wrist/hand: WNL. Stregth: not tested secondary to protocol - Goals Goal 1:: Patient will be I with HEP and progression Goal Time Frame: 4-6 Weeks Goal 2:: Patient will demo full AROM of shoulder as appropriate through protocol Goal Time Frame: 4-6 Weeks Goal 3:: Patient will report 0/10 pain for 1 week Goal Time Frame: 4-6 Weeks Goal 4:: Patient will maintain proper posture t/o tx session to demo increased scap s/s. Goal Time Frame: 4-6 Weeks - Rehabilitation Potential Physical Therapy Diagnosis: Patient presents with hypomobility- he has decreased ROM, strength and muscular endurance s/p RTC repair 01/27/18 Rehabilitation Potential: Fair - Anticipated Interventions Patient/Client Instruction: Educate patient on: Benefits of Fitness Program Therapeutic Exercise to Include: Strength training, Endurance training, Body mechanics, Postural training, Passive ROM, Active ROM, Scapular Strength/Stabilization For the Purpose of:: To increase ROM, To improve muscle performance and motor function Manual Therapy Techniques to Include: Passive ROM TENS: Yes Cryotherapy (ice pack, ice massage): Yes Thermo therapy (hot pack): Yes Ultrasound (thermal/non thermal): Yes For the Purpose of:: To decrease pain Thank you for the opportunity to evaluate your patient. For Medicare and Medicare HMO plans, please review the plan of care and approve it. It will need to be FAXED BACK to us at [phone] for Medicare purposes. Please let me know if there are questions or concerns regarding this plan of care. Physician Signature: Date:
== END 2018-04-06 19:00 | disposition home or self-care (01) ==
LOC: PT 13:00
PROVIDERS: Family Provider Family Medicine; PCP Family Medicine; Referring Provider Orthopaedic Surgery; Visit Provider Orthopaedic Surgery
DX: M75.121 Complete rotator cuff tear or rupture of right shoulder, not specified as traumatic (principal)
CPT/HCPCS: 97110; 97162

== ENCOUNTER 2020-03-13 16:55 | Emergency (ER) | payer MEDICARE, BC, SELFPAY ==
[2020-03-13 16:57] VITALS: BP 153/92; PULSE 78; RESP 16; TEMP 36.7; O2SAT 96; BMI 39.8
--- NOTE | 2020-03-13 17:34 | ED.DCSUM_ITS ---
History of Present Illness Chief Complaint: Head Injury Informant: Patient Narrative: 74-year-old male presenting for evaluation due to new onset memory loss. He states that about 2 weeks ago he was walking with his support animal which she has for PTSD. He states the dog was on a buggy and he was walking behind him. He tried to stop the dog and his fingers got caught in the body and he fell forward over the body hitting his head on the concrete. He states he is unsure if he was knocked out. He was evaluated by EMS and had some scratches on his forehead but they bandaged them up. He stated that at that time he did not go to the hospital. Since that time he has had some problems with his memory. He states that he was trying to order some food on Tuesday and got busy and thought he forgot to pick it up. He called on Tuesday and said told that he picked them up yesterday. Patient also states that he was trying to get his 's home health care nurse to come out to the house on Tuesday and again was told that home health care came out on Tuesday. He does not have any dizziness, nausea, visual complaints. He states he gets intermittent headache in the left upper side of his head. He states he has been eating and drinking normally. - Past Medical History (1) HTN (hypertension) Status: Chronic (2) Presence of IVC filter Status: Chronic (3) Gastric bypass status for obesity Status: Chronic Past Medical History - Allergies and Home Meds Allergies/Adverse Reactions: Allergies oxycodone Adverse Reaction (Verified 03/13/20 16:59) Nausea Primary Care Physician: Sundeep King MD [Primary Care Provider] - Prior records reviewed: Yes Past Medical History: - - Reviewed in problem list Surgical History: noncontributory, - - gastric bypass, right elbow surgery due to infection Lives: Spouse/ Significant Other Smoking Status: Former smoker Alcohol: Occasional Drugs: None - Family History Maternal Family History: Reports: No pertinent history Paternal Family History: Reports: No pertinent history Review of Systems General: Denies: Chills, Fever, Sweats Eyes: Denies: Visual changes - bilaterally, Diplopia ENT: Denies: Rhinorrhea, Sore throat Cardiovascular: Denies: Chest pain, Palpitations Respiratory: Denies: Dyspnea, Cough, Dyspnea on exertion Gastrointestinal: Denies: Abdominal pain, Nausea, Vomiting, Diarrhea, Melena, Hematochezia Genitourinary: Denies: Dysuria, Hematuria, Frequency Musculoskeletal: Denies: Back pain, Extremity Pain Neurological: Reports: Headache, - - Intermittent confusion. Denies: Pa rasthesia, Numbness Psych: Denies: Depression, Anxiety Physical Exam Vital Signs/Narrative: Vital Signs Temp Pulse Resp BP Pulse Ox 03/13/20 16:57 98.1 F 78 16 153/92 H 96 General: Obese, No Acute Distress Head: Normocephalic, - - Facial abrasions to the left upper scalp. No active bleeding. No skull deformities. Eyes: Perrl, EOMI ENT: Moist mucous membranes, TM's clear, - - No hemotympanum. Cardiovascular: Regular rate, Regular rhythm Respiratory: No distress, CTA bilaterally Extremities: Nontender, No edema Skin: Normal color, No rash Neurological: Alert, Oriented x3, Cranial nerves II-XII grossly intact, Normal Strength, Normal Sensation Psychological: Normal affect, Normal Mood Diagnostic/Tx/Re-eval Clinical Impression(s) from Imaging Studies Brain CT 03/13/20 18:17 IMPRESSION: Moderate atrophy and periventricular white matter ischemic changes. No evidence for acute intracranial bleed. Electronically Signed: Thai Pepper MD at 18:30 EDT , Service support , - Medical Decision Making 74-year-old male presents with some confusion after hitting his head a couple of weeks ago. He states he is getting times and dates wrong intermittently. He saw his PCP who sent him in for a CT of the brain. On exam he has no focal neurologic deficits or lateralizing signs or symptoms. He describes completely a mechanical fall without any dizziness or lightheadedness. He is not had any dizziness, nausea since his fall. He states he been eating and drinking normally. His only problem is with his memory. CT of the brain was negative. I counseled him that he possibly could have concussive symptoms but there was no emergent findings. Think he is stable to be discharged home. I do not believe he needs further lab work or imaging. Patient is amenable to this plan and stable for discharge home. Impression: 1. Closed head injury 2. Concussion ED Disposition - Plan for ED Patient: Disposition: Home or Assisted Living Instructions: ED Concussion Referrals: Sundeep King MD [Primary Care Provider] -
--- NOTE | 2020-03-13 18:17 | CT_ITS ---
STUDY: CT BRAIN WITHOUT CONTRAST REASON FOR EXAM: Male, 74 years old. HEAD INJURY,hit head 2 wks ago,confusion,memory loss,? loc RADIATION DOSAGE (If Supplied By Facility): CTDIvol = ( 44.99 ) mGy, DLP = ( 846.73 ) mGycm TECHNIQUE: Transaxial CT imaging of the brain was performed without administration of intravenous contrast material. Individualized dose optimization techniques were used for this CT. COMPARISON: No relevant priors. FINDINGS: Normal soft tissue structures. Normal calvarium. Mild calcification of cavernous carotids. Moderate atrophy and periventricular white matter ischemic changes.. Normal basal ganglia and thalami. Normal brainstem. Normal cerebellum. There is no intracranial hemorrhage. There are no findings of an acute ischemic infarction. Postsurgical changes of the orbits. Large mucous retention cyst in right maxillary sinus. CT/Brain/Head without Contrast IMPRESSION: Moderate atrophy and periventricular white matter ischemic changes. No evidence for acute intracranial bleed. Electronically Signed: Thai Pepper MD at 18:30 EDT , Service support ,
--- NOTE | 2020-03-13 19:00 | ED.RN ---
PT REPORTS INTERMITTNET SHORT TERM MEMRY LOSS.
[2020-03-13 19:17] VITALS: BP 159/98; PULSE 75; RESP 16; O2SAT 96
== END 2020-03-13 19:26 | disposition home or self-care (01) ==
LOC: ED 19:18
PROVIDERS: Emergency Provider Student in an Organized Health Care Education/Training Program; PCP Family Medicine
DX: S06.0X0A Concussion without loss of consciousness, initial encounter (principal); S00.81XA Abrasion of other part of head, initial encounter; W19.XXXA Unspecified fall, initial encounter; Y93.01 Activity, walking, marching and hiking; Y92.9 Unspecified place or not applicable; E66.9 Obesity, unspecified; I10 Essential (primary) hypertension; F43.10 Post-traumatic stress disorder, unspecified; Z98.84 Bariatric surgery status; Z95.828 Presence of other vascular implants and grafts; Z79.82 Long term (current) use of aspirin; Z79.899 Other long term (current) drug therapy; Z87.891 Personal history of nicotine dependence
CPT/HCPCS: 70450; 99281

== ENCOUNTER 2021-02-14 14:52 | Emergency (ER) | payer MEDICARE, BC, SELFPAY ==
[2021-02-14 14:54] VITALS: BP 141/109; PULSE 84; RESP 16; TEMP 36.2; O2SAT 97; BMI 44.6
[2021-02-14 16:38] VITALS: BP 167/94; PULSE 89; RESP 16; O2SAT 94
--- NOTE | 2021-02-14 16:43 | ED.VIS.LOWEX ---
HPI History of Present Illness Chief Complaint: Edema Narrative Narrative: Patient presenting with bilateral lower extremity pain and states he was sent in for DVT studies of the lower extremities. Patient has been dealing with cellulitis of the lower extremities for months he states. Patient has previously been is prescribed Keflex but did not take the full course of antibiotics. He also has been prescribed clindamycin without finishing the course of antibiotics. Patient currently is on day 1 of Keflex but with his lower extremity swelling the patient's primary care doctor wanted him to come in for DVT studies. It does sound as if the patient is noncompliant with his antibiotics. He states that he is having a lot of difficulty at home because he just lost his and he has been very depressed. He does not have any chest pain or shortness of breath. He denies any fever or chills. He feels otherwise well. He does admit that he is only taken 1 dose of his 4 times daily Keflex today. [facility] Medical History Congestive heart failure High cholesterol Home Medications lisinopril 40 mg PO DAILY 01/08/15 [History Last Taken 04/24/15] gabapentin 300 mg PO BID 03/13/20 [History Last Taken Unknown] atorvastatin 02/14/21 [History Last Taken Unknown] cephalexin 02/14/21 [History Last Taken Unknown] furosemide 40 mg PO DAILY 02/14/21 [History Last Taken Unknown] Allergy/AdvReac Type Severity Reaction Status Date / Time oxycodone AdvReac Nausea Verified 03/13/20 16:59 Social History Smoking Status: Current every day smoker tobacco type: cigarettes ROS ROS ED Constitutional Constitutional ED: Denies chills or fever(s) Eyes Eyes: Denies blurry vision or diplopia ENT ENT ED: Denies rhinorrhea or sore throat Cardiovascular Cardiovascular: Denies chest pain or palpitations Respiratory/Chest Respiratory/Chest: Denies cough, dyspnea or sputum Gastrointestinal Gastrointestinal: Denies abdominal pain, nausea or vomiting Genitourinary Genitourinary ED: Denies dysuria or hematuria Musculoskeletal Musculoskeletal: Reports other Details: Bilateral lower extremity swelling Integumentary Reports other Details: Bilateral lower extremity erythema and warmth ; Denies abscess Neurologic Neurologic: Denies headache(s) or weakness Psychiatric Psychiatric: Reports depression; Denies anxiety, suicidal ideation or suicidal thoughts EXAM Physical Exam Const Vital Signs: 02/14/21 14:54 02/14/21 16:38 02/14/21 16:59 Temperature 97.2 F L Temperature Source Temporal Pulse Rate 84 89 Respiratory Rate 16 16 Respiratory Effort Normal Respiratory Pattern Normal Blood Pressure 141/109 H 167/94 H Blood Pressure Mean 119 118 Pulse Ox 97 94 Oxygen Delivery Method Room Air Room Air Positive well nourished and obese General Appearance ED: NAD Nutritional Appearance: obese HEENT normocephalic and atraumatic Resp normal respiratory effort and clear to auscultation bilaterally Cardio regular rate and regular rhythm Extremity Extremity Narrative: Bilateral lower extremity edema and erythema as well as increased warmth. Compartments are soft. No cords palpated. Neuro oriented x3 Sensorium / Orientation: alert Psych mental status grossly normal Skin Skin Narrative: As described above MDM MDM MDM Narrative Medical decision making narrative: Patient presenting with bilateral lower extremity cellulitis. It sounds like he has been having difficulty taking his medication due to depression. I did offer social work to come talk to him however he states he is already done this. At this time of day there are no duplex ultrasounds available. Patient will be given prescription for this outpatient. Of note patient is not anticoagulated but he does have an IVC filter. Given this I do not believe he needs Lovenox overnight. He is counseled to continue his medications at home and if his cellulitis is worsening or he has systemic signs or symptoms to return to the ER. At this point he feels otherwise well and he has not taken his antibiotics so I think he is safe to be discharged home. He will follow-up tomorrow for ultrasound. Impression: 1. Bilateral lower extremity cellulitis Discharge Plan Triage Chief Complaint: Edema ED Provider: Tin Vanegas Dx/Rx/DC Orders Instructions: ED Cellulitis, ED Peripheral Edema, Bilateral Prescriptions: No Action lisinopril 20 MG tablet 40 mg PO DAILY RF: 0 gabapentin 100 MG capsule 300 mg PO BID RF: 0 furosemide 40 mg tablet 40 mg PO DAILY RF: 0 atorvastatin 40 mg tablet RF: 0 cephalexin 500 mg capsule RF: 0 Primary Care Provider: Sundeep King Referrals: Sundeep King MD [Primary Care Provider] - Disposition Disposition: Home, Self Care Discharge Date/Time: 02/14/21 17:29
== END 2021-02-14 17:29 | disposition home or self-care (01) ==
LOC: ED 17:01
PROVIDERS: Emergency Provider Student in an Organized Health Care Education/Training Program; PCP Family Medicine
DX: L03.115 Cellulitis of right lower limb (principal); L03.116 Cellulitis of left lower limb; E66.9 Obesity, unspecified; Z68.41 Body mass index [BMI] 40.0-44.9, adult; I50.9 Heart failure, unspecified; E78.00 Pure hypercholesterolemia, unspecified; Z95.828 Presence of other vascular implants and grafts; Z79.899 Other long term (current) drug therapy; F17.210 Nicotine dependence, cigarettes, uncomplicated
CPT/HCPCS: 99283

== ENCOUNTER → 2021-02-15 11:36 | Outpatient (CLI) | payer MEDICARE, BC, SELFPAY ==
--- NOTE | 2021-02-15 11:41 | VDLE_ITS ---
Reason For Study: Edema RIGHT LEFT CFV is compressible, spontaneous, phasic, CFV is compressible, spontaneous, phasic, competent and demonstrates normal competent, and demonstrates normal augmentation. augmentation. FV is compressible, spontaneous, phasic, FV is compressible, spontaneous, phasic, competent and demonstrates normal competent and demonstrates normal augmentation. augmentation. POP V is compressible, spontaneous, phasic, POP V is compressible, spontaneous, phasic, competent and demonstrates normal competent and demonstrates normal augmentation. augmentation. T/P Trunk is compressible. T/P Trunk is compressible. PTV is compressible. PTV is compressible. RT PerV is compressible. LT PerV is compressible. Acute superficial vein thrombosis is noted in Thrombus filled varicose veins noted in the the right GSV from mid-distal calf. left mid-distal calf. Procedure Chronic vein wall thickening is noted in GSV This is a venous duplex using B-mode, color below the knee. flow and spectral Doppler. Exam performed in department. A preliminary report was called and/or faxed to PCP:Christine. Pt seen in ED 02/14/2021, exam done as next day ED scan. Called ED luis Rizo to let patient go home with instructions to follow up with PCP on tuesday02/16/2021. VL/Venous Duplex US - [facility] Extrem Interpretation Summary No evidence for acute deep venous thrombosis bilateral lower extremities Superficial thrombophlebitis right great saphenous vein from the mid to distal calf Superficial thrombophlebitis varicose veins left mid to distal calf. Chronic ve in wall thickening noted in the left infrageniculate great saphenous vein Ordering Physician: Tin Vanegas Referring Physician: Sundeep King Performed By: Kristal Butcher RVT
== END ==
PROVIDERS: PCP Family Medicine; Visit Provider Student in an Organized Health Care Education/Training Program
DX: M79.89 Other specified soft tissue disorders (principal)
CPT/HCPCS: 93970